=== PATIENT | male | born 1975 | race Caucasian/White ===

== ENCOUNTER 2016-05-13 17:53 | Emergency (ER) | payer MEDICAID ==
[~2016-05-13] VITALS: Ht 175.3 cm; Wt 86.2 kg
--- NOTE | 2016-05-13 18:05 | NUR ---
PT CAME IN FOR NAUSEA, DIZZINESS SINCE AM. NOTED PT SMELLS STRONGLY OF MARIJUANA. VSS. SEEN BY MD FOR EVAL. SAFETY AND COMFORT MEASURES PROVIDED. WILL MONITOR.
--- NOTE | 2016-05-13 18:20 | NUR ---
IV ACCESS STARTED. BLOOD DRAWN FOR LABS.
[2016-05-13] MEDS ORDERED: ONDANSETRON HCL/PF 4 MG/2 ML VIAL ONE (18:23)
[2016-05-13] MEDS ORDERED: IV NS 0.9% 1,000 ML ONE (18:23)
[2016-05-13] MEDS ORDERED: IV SET PRIMARY PUMP SET 1 EA INFUS.SET MC ONE (18:23)
[2016-05-13 18:26] LABS: BASOPHILS # (AUTO) 0.4 /CMM (0.0-0.2); BASOPHILS % (AUTO) 2.8 % (0.0-2.0); EOSINOPHILS # (AUTO) 0.1 /CMM (0.0-0.7); EOSINOPHILS % (AUTO) 0.6 % (0.0-6.0); HEMATOCRIT 49 % (39-51); HEMOGLOBIN 16.9 g/dL (13.5-17.5); LYMPHOCYTES # (AUTO) 1.5 /CMM (0.8-4.8); LYMPHOCYTES % (AUTO) 9.9 % (20.0-44.0); MEAN CORPUSCULAR HEMOGLOBIN 31 PG (26.0-33.0); MEAN CORPUSCULAR HGB CONC 35 g/dl (31.0-36.0); MEAN CORPUSCULAR VOLUME 90 fL (80-96); MONOCYTES # (AUTO) 0.5 /CMM (0.1-1.30); MONOCYTES % (AUTO) 3.1 % (2.0-12.0); NEUTROPHILS # (AUTO) 12.3 /CMM (1.8-8.9); NEUTROPHILS % (AUTO) 83.6 % (43.0-81.0); PLATELET COUNT (AUTO) 218 /CMM (150-450); RED BLOOD CELL COUNT(AUTO) 5.41 MIL/uL (4.5-6.0); WHITE BLOOD COUNT (AUTO) 14.8 K/uL (4.3-11.0)
[2016-05-13] MEDS ORDERED: IV NS 0.9% 1,000 ML BAG IV ONE (18:30)
[2016-05-13] MEDS ORDERED: ONDANSETRON HCL/PF 4 MG/2 ML VIAL IVP ONE (18:30)
--- NOTE | 2016-05-13 18:34 | NUR ---
PT MEDICATED ORDERED.
[2016-05-13 18:35] LABS: CALCIUM, SERUM 9.4 mg/dL (8.5-10.1); CREATININE 0.9 mg/dL (0.6-1.3); POTASSIUM 3.6 mmol/L (3.5-5.1)
[2016-05-13 18:41] LABS: ALBUMIN 4.5 g/dL (3.4-5.0); BILIRUBIN,DIRECT 0.1 mg/dL (0.0-0.2); BILIRUBIN,TOTAL 0.5 mg/dL (0.2-1.0); TOTAL PROTEIN, SERUM 7.9 g/dL (6.4-8.2)
--- NOTE | 2016-05-13 19:21 | NUR ---
REPORT GIVEN TO BAMBI NGUYEN FOR SITA.
[2016-05-13] MEDS ORDERED: MECLIZINE HCL 25 MG TABLET ONE (19:59)
[2016-05-13] MEDS ORDERED: METOCLOPRAMIDE HCL 10 MG TABLET ONE (19:59)
[2016-05-13] MEDS ORDERED: MECLIZINE HCL 12.5 MG TABLET PO ONE (20:00)
[2016-05-13] MEDS ORDERED: METOCLOPRAMIDE HCL 10 MG TABLET PO ONE (20:00)
--- NOTE | 2016-05-13 21:50 | NUR ---
Patient reported to be "feeling better but still a little bit nauseous and dizzy." Seen patient walking to bathroom with steady gait.
[2016-05-13 22:12] VITALS: BP 119/68
--- NOTE | 2016-05-13 22:12 | NUR ---
Patient discharged to home in stable condition. Written and verbal after care instructions given. Patient verbalizes understanding of instruction.IV removed. Catheter intact and site benign. Pressure and 4x4 applied to site. No bleeding noted. PT ambulatory with a steady gait VITAL SIGNS WITHIN NORMAL LIMITS.
== END 2016-05-13 22:13 | disposition home or self-care (01) ==
LOC: ER 17:54
DX: R42 Dizziness and giddiness (principal); F17.200 Nicotine dependence, unspecified, uncomplicated
CPT/HCPCS: 36415; 80048; 80076; 83690; 85025; 96361; 96374; 99285; A4606; A6402; J2405; J7030; J8597 ×2; Z7610

== ENCOUNTER 2016-09-28 19:13 | Emergency (ER) | payer MEDICAID ==
--- NOTE | 2016-09-28 19:30 | NUR ---
CALLED FOR TRIAGE X3; NO ANSWER AND NOT IN LOBBY
--- NOTE | 2016-09-28 19:37 | NUR ---
CALLED AGAIN; NO ANSWER
--- NOTE | 2016-09-28 19:44 | NUR ---
CALLED AGAIN; NOT IN LOBBY
--- NOTE | 2016-09-28 19:53 | NUR ---
CALLED AGAIN; NO ANSWER. INFORMED BY ADMITTING "HE LEFT"
== END 2016-09-28 19:54 | disposition left against medical advice (07) ==
LOC: ER 19:15
DX: Z53.21 Procedure and treatment not carried out due to patient leaving prior to being seen by health care provider (principal)